=== PATIENT | female | born 1980 | race Caucasian/White ===

== ENCOUNTER 2018-06-21 17:56 | Emergency (ER) | payer SELFPAY ==
[~2018-06-21] VITALS: Ht 165.1 cm; Wt 68.0 kg
[2018-06-21] MEDS ORDERED: ONDANSETRON HCL 4MG TABLET PO ONE (19:00)
[2018-06-21] MEDS ORDERED: IBUPROFEN 600MG TABLET PO ONE (19:00)
[2018-06-21] MEDS ORDERED: METHOCARBAMOL 500MG TABLET PO ONE (23:00)
[2018-06-22 00:59] VITALS: BP 118/77
== END 2018-06-22 01:02 | disposition home or self-care (01) ==
LOC: ER 17:56
DX: S20.219A Contusion of unspecified front wall of thorax, initial encounter (principal); Z88.0 Allergy status to penicillin; Z85.9 Personal history of malignant neoplasm, unspecified; V43.52XA Car driver injured in collision with other type car in traffic accident, initial encounter; Y93.89 Activity, other specified; Y92.488 Other paved roadways as the place of occurrence of the external cause
CPT/HCPCS: 71045; 93005; 99284; Q0162